=== PATIENT | female | born 1945 | race Native Hawaiian/Other Pacific Islander ===

== ENCOUNTER 2023-04-25 11:11 | Emergency (ER) | payer OTHER ==
[~2023-04-25] VITALS: Ht 165.1 cm; Wt 65.3 kg
[2023-04-25 11:11] VITALS: TEMP 98.2
[2023-04-25 11:41] LABS: PLATELET COUNT 215 K/uL (152-353)
[2023-04-25 14:05] LABS: PARTIAL THROMBOPLASTIN TIME 26.3 SECONDS (23.9-36.7)
[2023-04-25 15:10] VITALS: BP 142/78
== END 2023-04-25 15:14 | disposition home or self-care (01) ==
LOC: ED 11:11
PROVIDERS: Family Medicine
DX: K44.9 Diaphragmatic hernia without obstruction or gangrene (principal); E86.0 Dehydration
CPT/HCPCS: 36600; 80053; 81002; 82550; 82805; 84484; 85027; 85379; 85610; 85730; 87502; 87635; 93005; 96360; 99284; U0003